=== PATIENT | male | born 1975 | race Caucasian/White ===

== ENCOUNTER 2024-04-17 10:22 | Emergency (ER) | payer OTHER, SELFPAY ==
[2024-04-17 10:26] VITALS: BP 180/107; PULSE 87; RESP 18; TEMP 36.9; O2SAT 95; BMI 35.1
--- NOTE | 2024-04-17 10:32 | DI.RAD.S_ITS ---
PROCEDURE: XR CHEST 1V INDICATIONS: chest pain TECHNIQUE: One view of the chest was acquired. COMPARISON: None. FINDINGS: Surgical changes and devices: None. Lungs and pleura: Lungs are clear. No pleural effusions or pneumothorax. Mediastinum: Mediastinal contours appear normal. Heart size is normal. Bones and chest wall: No suspicious bony lesions. Overlying soft tissues appear unremarkable. IMPRESSION: No acute cardiopulmonary abnormalities or focal consolidation. Dictated by: Davonte Culver M.D. on 04/17/2024 at 11:26 Approved by: Davonte Culver M.D. on 04/17/2024 at 11:26
--- NOTE | 2024-04-17 10:40 | EKG_ITS ---
[address] [id number] [address], [place] [address] Test Date: 2024-04-17 Pat Name: Juan Bernardo Department: 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
[2024-04-17 11:18] LABS: Add Manual Diff / Slide Review NO; Basophils Absolute Auto 100 /uL (0-100); Basophils Percent Auto 0.5 % (0-2); Eosinophils Absolute Auto 100 /uL (0-450); Eosinophils Percent Auto 0.8 % (2-4); Hematocrit 46.5 % (41-53); Hemoglobin 16.4 g/dL (13.5-17.5); Lymphocytes Absolute Auto 2000 /uL (1100-4500); Lymphocytes Percent Auto 19.8 % (25-40); Mean Corpuscular HGB Conc 35.2 % (30-36); Mean Corpuscular Hemoglobin 31.1 PG (26-34); Mean Corpuscular Volume 88.5 fL (80-100); Monocytes Absolute Auto 900 /uL (0-900); Monocytes Percent Auto 9.4 % (3-14); Neutrophils Absolute Auto 7000 /uL (1500-7000); Neutrophils Percent Auto 69.5 % (50-75); Platelet Count 351 X10^3/uL (150-400); Red Blood Cell Count 5.26 X10^6/uL (4.5-5.9); Red Cell Distribution Width 13.2 % (11.6-14.8)
[2024-04-17 11:24] LABS: INR 1.1 (0.9-1.3); Prothrombin Time 12.2 SECONDS (9.4-12.5)
[2024-04-17 11:26] LABS: PTT Partial Thromboplastin Tim 34 SECONDS (25.1-36.5)
[2024-04-17 11:30] LABS: Alanine Aminotransferase 50 IU/L (<50); Albumin 4.9 g/dL (3.5-5.0); Albumin Globulin Ratio 1.3 (1.0-2.8); Alkaline Phosphatase 65 U/L (38-126); Aspartate Aminotransferase 41 IU/L (17-59); BUN Creatinine Ratio 12.1 (6-22); Bilirubin Total 0.9 mg/dL (0.2-1.3); Blood Urea Nitrogen 14 mg/dL (9-20); Calcium 9.9 mg/dL (8.4-10.2); Carbon Dioxide 24 mmol/L (22-32); Chloride 101 mmol/L (98-107); Creatine Kinase 169 U/L (55-170); Estimated Glomerular Filt Rate > 60 mL/min (>60); Globulin 3.9 g/dL (1.7-4.1); Glucose 130 mg/dL (70-100); HEMOLYSIS < 15 (0-50); Lipase 70 U/L (23-300); Magnesium 2.1 mg/dL (1.6-2.3); Potassium 3.9 mmol/L (3.4-5.1); Sodium 138 mmol/L (137-145); Total Protein 8.8 g/dL (6.3-8.2)
[2024-04-17 11:41] LABS: NT-proBNP (BNP-Adult 18+) 74 pg/mL (<125); Troponin I < 0.012 ng/mL (0.01-0.034)
--- NOTE | 2024-04-17 13:19 | ED.DIZZY ---
HPI - Dizziness General Chief Complaint: Dizziness Stated Complaint: feels like losing consciousness, nausea Time Seen by Provider: 04/17/24 13:04 History of Present Illness HPI Narrative: Patient is a 49-year-old male history of hypertension presenting today with dizziness. He reports he has been dizzy for about 1-2 days. He feels nauseous. No weakness. Yesterday he felt a little numbness in his hands. He does not have a history of vertigo. He has been up here for about 2 weeks from [place] working for the [employer]. No fever chills or cough. No sore throat. No chest pain or palpitations. Related Data Previous Rx's Medication Instructions Recorded meclizine 25 mg tablet 25 mg PO TID PRN dizziness #10 tabs 04/17/24 ondansetron 4 mg disintegrating 4 mg PO Q8H PRN nausea and 04/17/24 tablet vomiting #10 tabs Allergies Allergy/AdvReac Type Severity Reaction Status Date / Time No Known Drug Allergies Allergy Verified 04/17/24 10:26 Patient History Social History Smoking Status: Never smoker Smoking Status: Never smoker Exam Initial Vital Signs Initial Vital Signs: Vital Signs Temperature 98.4 F 04/17/24 10:26 Pulse Rate 87 04/17/24 10:26 Respiratory Rate 18 04/17/24 10:26 Blood Pressure 180/107 H 04/17/24 10:26 Pulse Oximetry 95 04/17/24 10:26 Oxygen Delivery Method Room Air 04/17/24 10:26 GENERAL: Alert pleasant well-appearing 49-year-old and in no acute distress. HEENT: Head atraumatic,EOMI, pupils reactive, no nystagmus face symmetric, moist mucous membranes CARDIOVASCULAR: Regular rate and rhythm without murmurs, rubs or gallops. RESPIRATORY: Breath sounds equal bilaterally, no wheezes rales or rhonchi. ABDOMEN: Soft, nontender. Normoactive bowel sounds all 4 quadrants. No guarding or rebound. EXTREMITIES: Normal range of motion, no clubbing or edema. Neurovascularly intact NEUROLOGICAL: Alert and oriented x4.Normal gait and speech. Cranial nerves II through XII grossly intact. Traveling Sales Executive strength equal bilaterally lower extremity strength equal SKIN: Warm, dry, no laceration, no petechiae, no rashes or lesions. Course Orders Ordered: ED Orders 04/17/24 10:32 XR chest 1V Stat EKG-12 Lead Stat 04/17/24 11:08 Complete Blood Count AUTO DIFF Stat Comprehensive Metabolic Panel Stat Lipase Stat Magnesium Stat NT-proBNP (BNP-Adult 18+) Stat PTT Partial Thromboplastin [place] Stat Prothrombin Time INR Stat Troponin & CK Cardiac Panel Stat Discontinued Medications Aspirin (Aspirin 81 Mg Chew Tab) 324 mg PO NOW ONE Stop: 04/17/24 10:33 Last Admin: 04/17/24 13:27 Dose: Not Given Documented By: KAELYN Sodium Chloride (Normal Saline 0.9%) 1,000 mls @ 1,000 mls/hr IV BOLUS ONE Stop: 04/17/24 14:25 Last Infusion: 04/17/24 14:30 Dose: Infused Documented By: Admin: 04/17/24 13:31 Dose: 1,000 mls/hr Documented By: KAELYN Meclizine HCl (Meclizine Hcl 12.5 Mg Tablet) 25 mg PO NOW ONE Stop: 04/17/24 13:27 Last Admin: 04/17/24 13:31 Dose: 25 mg Documented By: KAELYN Ondansetron HCl (Ondansetron 4 Mg/2 Ml Inj) 4 mg IV NOW ONE Stop: 04/17/24 13:27 Last Admin: 04/17/24 13:31 Dose: 4 mg Documented By: KAELYN Vital Signs Vital signs: Vital Signs - 8 hr 04/17/24 10:26 04/17/24 13:30 04/17/24 14:19 Temperature 98.4 F Pulse Rate 87 73 73 Respiratory Rate 18 18 14 Blood Pressure 180/107 H 136/76 Pulse Oximetry 95 97 Oxygen Delivery Method Room Air Room Air 04/17/24 14:49 Temperature 99 F Pulse Rate 77 Respiratory Rate 20 Blood Pressure 153/78 H Pulse Oximetry 96 Oxygen Delivery Method Room Air MDM - Dizziness Lab Data 04/17/24 11:08 04/17/24 11:08 Labs: Lab Results 04/17/24 Range/Units 11:08 WBC 10.0 (4.5-11.0) X10^3/uL RBC 5.26 (4.5-5.9) X10^6/uL Hgb 16.4 (13.5-17.5) g/dL Hct 46.5 (41-53) % MCV 88.5 (80-100) fL MCH 31.1 (26-34) PG MCHC 35.2 (30-36) % RDW 13.2 (11.6-14.8) % Plt Count 351 (150-400) X10^3/uL Neut % (Auto) 69.5 (50-75) % Lymph % (Auto) 19.8 L (25-40) % [place] % (Auto) 9.4 (3-14) % Eos % (Auto) 0.8 L (2-4) % Baso % (Auto) 0.5 (0-2) % Neut # (Auto) 7000 (1264-9554) /uL Lymph # (Auto) 2000 (9278-2545) /uL [place] # (Auto) 900 (0-900) /uL Eos # (Auto) 100 (0-450) /uL Baso # (Auto) 100 (0-100) /uL PT 12.2 (9.4-12.5) SECONDS INR 1.1 (0.9-1.3) APTT 34 (25.1-36.5) SECONDS Sodium 138 (137-145) mmol/L Potassium 3.9 (3.4-5.1) mmol/L Chloride 101 (98-107) mmol/L Carbon Dioxide 24 (22-32) mmol/L BUN 14 (9-20) mg/dL Creatinine 1.16 (0.66-1.25) mg/dL Estimated GFR > 60 (>60) mL/min BUN/Creatinine Ratio 12.1 (6-22) Glucose 130 H (70-100) mg/dL Calcium 9.9 (8.4-10.2) mg/dL Magnesium 2.1 (1.6-2.3) mg/dL Total Bilirubin 0.9 (0.2-1.3) mg/dL AST 41 (17-59) IU/L ALT 50 H (<50) IU/L Alkaline Phosphatase 65 (38-126) U/L Total Creatine Kinase 169 (55-170) U/L Troponin I < 0.012 (0.01-0.034) ng/mL NT-Pro-B Natriuret Pep 74 (<125) pg/mL Total Protein 8.8 H (6.3-8.2) g/dL Albumin 4.9 (3.5-5.0) g/dL Globulin 3.9 (1.7-4.1) g/dL Albumin/Globulin Ratio 1.3 (1.0-2.8) Lipase 70 (23-300) U/L Imaging Data Chest x-ray: Radiologist's Impression: PROCEDURE: XR CHEST 1V INDICATIONS: chest pain TECHNIQUE: One view of the chest was acquired. COMPARISON: None. FINDINGS: Surgical changes and devices: None. Lungs and pleura: Lungs are clear. No pleural effusions or pneumothorax. Mediastinum: Mediastinal contours appear normal. Heart size is normal. Bones and chest wall: No suspicious bony lesions. Overlying soft tissues appear unremarkable. IMPRESSION: No acute cardiopulmonary abnormalities or focal consolidation. Dictated by: Davonte Culver M.D. on 04/17/2024 at 11:26 ECG Data Attestation: I personally reviewed and interpreted this ECG as follows: Interpretation: Normal sinus rhythm rate 77 [place] interval 156 QRS [address] changes no T-wave inversions MDM Narrative Medical decision making narrative: Patient 49-year-old male history of hypertension presenting today with 1-2 days of vertigo. He was no focal deficits overall appears well says he feels nauseous but not actually vomiting here in the ED. Blood work has been reviewed overall reassuring no clinical significant abnormalities. Electrolytes within normal limits troponin negative no anemia or leukocytosis Chest x-ray reviewed no acute cardiopulmonary process EKGs reviewed sinus rhythm without ischemia Patient received Zofran meclizine and an fluid. He feels a little bit better. He does not have any active vomiting or weakness here. No need for imaging at this time. Feels like he can go home. I do think this is more of a vertigo/vestibular neuritis No real focal deficits to suggest CVA he initially was hypertensive but no longer. Discharge Plan Departure Patient Disposition: Home Clinical Impression: Vertigo Instructions: DI for Vertigo Activity Restrictions/Additional Instructions: *You have been diagnosed with vertigo *What to do: At this time increase fluids rest *Continue to take medications as directed Zofran 4 mg every 8 hours for nausea or vomiting Meclizine 25-50 mg every 8 hours for dizziness *Follow up with your primary care provider in 2-3 days or call [phone] *Return to ER if you should have increasing dizziness weakness numbness tingling or any new, worsening or concerning symptoms Prescriptions: New meclizine 25 mg tablet 25 mg PO TID PRN (Reason: dizziness) Qty: 10 0RF ondansetron 4 mg tablet,disintegrating 4 mg PO Q8H PRN (Reason: nausea and vomiting) Qty: 10 0RF Stand Alone Forms: Patient Portal/API/Survey
[2024-04-17 13:30] VITALS: BP 136/76; PULSE 73; RESP 18
[2024-04-17] MEDS: ONDANSETRON 4 MG/2 ML INJ IV (13:31)
[2024-04-17] MEDS: SODIUM CHLORIDE 0.9% 1,000 ML 1000 ML IV (13:31)
[2024-04-17] MEDS: MECLIZINE HCL 12.5 MG TABLET 25 MG PO (13:31)
[2024-04-17 14:19] VITALS: PULSE 73; RESP 14; O2SAT 97
[2024-04-17 14:49] VITALS: BP 153/78; PULSE 77; RESP 20; TEMP 37.2; O2SAT 96
== END 2024-04-17 14:52 | disposition home or self-care (01) ==
PROVIDERS: Emergency Provider Emergency Medicine
DX: R42 Dizziness and giddiness (principal); I10 Essential (primary) hypertension; R20.0 Anesthesia of skin; R11.0 Nausea
CPT/HCPCS: 71045; 80053; 82550; 83690; 83735; 83880; 84484; 85025; 85610; 85730; 93005; 93010; 96361; 96374; 99284; J2405